=== PATIENT | female | born 1985 | race Caucasian/White ===

== ENCOUNTER 2019-03-14 19:28 | Emergency (ER) | payer BC ==
[~2019-03-14] VITALS: Ht 172.7 cm; Wt 71.7 kg
[2019-03-14 19:28] VITALS: BP_SYST 158
--- NOTE | 2019-03-14 19:37 | NUR ---
Pt placed to ER bed 01, to gown, to nuclear monitoring technician. Pt c/o constant Left-sided C/P that radiates to back since today. Pt also c/o cough, runny nose, C/P with cough x 2 weeks, worse today. Pt report given to SORIN Epps.
[2019-03-14 20:00] LABS: BILIRUBIN,URINE NEGATIVE (NEGATIVE); BLOOD, URINE NEGATIVE (NEGATIVE); CLARITY/URINE CLEAR (CLEAR); COLOR,URINE YELLOW (YELLOW); GLUCOSE,URINE NEGATIVE (NEGATIVE); KETONES,URINE NEGATIVE (NEGATIVE); LEUKOCYTE ESTERASE ,URINE NEGATIVE (NEGATIVE); NITRITE, URINE NEGATIVE (NEGATIVE); PH,URINE 6.5 (5.0-8.0); PROTEIN URINE NEGATIVE (NEGATIVE); UROBILINOGEN,URINE 0.2 (0.2-1.0)
[2019-03-14] MEDS ORDERED: ASPIRIN 81 MG TAB.CHEW PO ONE (20:00)
--- NOTE | 2019-03-14 20:05 | NUR ---
Pt BIB family to ED C/O intermittent sharp left sided chest pain with radiation to the upper back for the last couple weeks. Pain is exacerbated upon deep inspiration. The patient endorses flu-like symptoms prior to the onset of her chest pain. She reports seeing her PCP for ear pain, but was told her ears were fine, but her throat was slightly swollen. The patient endorses a panic attack today with lightheadedness and palpitations with a heart rate in the 160's No other injuries and or complaints noted VSS no s/s of acute distress Resting on gurney rails up
[2019-03-14] MEDS ORDERED: NITROGLYCERIN 0.4 MG TAB.SUBL SL ONE (20:15)
[2019-03-14 20:24] LABS: BASOPHILS % (AUTO) 0.6 % (0.0-2.0); EOSINOPHILS % (AUTO) 0.4 % (0.0-4.0); HEMATOCRIT 39.6 % (36-48); HEMOGLOBIN 13.6 g/dL (12.0-16.0); LYMPHOCYTES % (AUTO) 26.2 % (20.5-51.5); MEAN CORPUSCULAR HEMOGLOBIN 31 pg (27-31); MEAN CORPUSCULAR HGB CONC 34 % (32-36); MEAN CORPUSCULAR VOLUME 91 fL (79.0-98.0); MONOCYTES # (AUTO) 0.5 K/uL (0.0-1.0); MONOCYTES % (AUTO) 7.1 % (1.7-9.3); NEUTROPHILS % (AUTO) 65.7 % (40.0-70.0); PLATELET COUNT (AUTO) 333 K/uL (130-430); RED BLOOD CELL COUNT(AUTO) 4.36 MIL/uL (4.2-6.2); RED CELL DISTRIBUTION WIDTH 12.7 % (9.0-15.0); WHITE BLOOD COUNT (AUTO) 7.6 K/uL (4.8-10.8)
--- NOTE | 2019-03-14 20:35 | NUR ---
Dr. Rivas bedside for Pt eval
[2019-03-14 20:36] LABS: CALCIUM 9.2 mg/dL (8.4-11.0); INR 0.9 (0.8-1.2); POTASSIUM 3.7 mmol/L (3.5-5.1); PROTHROMBIN TIME 9.3 SECS (9.5-12.5)
[2019-03-14 20:41] LABS: TOTAL BILIRUBIN 0.3 mg/dL (0.0-1.0)
--- NOTE | 2019-03-14 21:45 | NUR ---
VSS no s/s of acute distress. Resting on gurney rails up
--- NOTE | 2019-03-14 22:41 | NUR ---
VSS no s/s of acute distress Resting on gurney rails up
[2019-03-14 23:56] VITALS: BP_SYST 131
--- NOTE | 2019-03-14 23:56 | NUR ---
Patient given written and verbal discharge instructions and verbalizes understanding. ER MD discussed with patient the results and treatment provided. Patient in stable condition. ID arm band removed. Rx of Methocarbamol and Ibuprofen given. Patient educated on pain management and to follow up with PMD. Pain Scale 0/10 Opportunity for questions provided and answered. Medication side effect fact sheet provided.
== END 2019-03-14 23:56 | disposition home or self-care (01) ==
LOC: SED 19:28
DX: R07.89 Other chest pain (principal); M26.609 Unspecified temporomandibular joint disorder, unspecified side; I10 Essential (primary) hypertension
CPT/HCPCS: 36415; 71045; 80053; 81003; 81025; 82550-TC; 83880; 84484; 85025; 85379; 85610-TC; 93005; 99284